=== PATIENT | female | born 1965 | race Caucasian/White ===

== ENCOUNTER 2017-09-13 14:08 | Inpatient (IN) | payer BC, OTHER ==
[~2017-09-13] VITALS: Ht 157.5 cm; Wt 67.6 kg
[~2017-09-13 14:08] MED LIST: ALPR0.5T PO; CITA40TA22 PO; LEVO50TA PO
[2017-09-13] MEDS ORDERED: METO-304 PO (14:37)
[2017-09-13] MEDS ORDERED: VENL75TA4 PO (14:37)
[2017-09-13] MEDS ORDERED: NITROGLYCERIN 0.4 MG/TAB BOTTLE SL ONE ×2 (14:45→14:58)
[2017-09-13 14:59] LABS: BASOPHILS # (AUTO) 0.1 K/uL (0.0-8.0); BASOPHILS % (AUTO) 0.6 % (0.0-2.0); EOSINOPHILS # (AUTO) 0.1 K/uL (0.0-0.7); EOSINOPHILS % (AUTO) 0.9 % (0.0-7.0); HEMOGLOBIN 14.1 G/DL (12.0-16.0); LYMPHOCYTES # (AUTO) 2.2 K/UL (0.8-4.8); LYMPHOCYTES % (AUTO) 22.8 % (20.5-51.5); MEAN CORPUSCULAR HEMOGLOBIN 28.5 UUG (27.0-31.0); MEAN CORPUSCULAR HGB CONC 33 g/dL (32.0-37.0); MEAN CORPUSCULAR VOLUME 87.2 FL (81.0-99.0); MONOCYTES # (AUTO) 0.4 K/UL (0.1-1.30); MONOCYTES % (AUTO) 4.3 % (0.0-11.0); NEUTROPHILS # (AUTO) 7.1 K/UL (1.8-8.9); NEUTROPHILS % (AUTO) 71.4 % (38.5-71.5); PLATELET COUNT (AUTO) 408 K/UL (150-450); RED BLOOD CELL COUNT(AUTO) 4.93 MIL/UL (4.2-5.4); WHITE BLOOD COUNT (AUTO) 9.9 K/UL (4.0-11.2)
[2017-09-13] MEDS ORDERED: ACETAMINOPHEN ES 500 MG TABLET PO ONE (15:00)
[2017-09-13] MEDS ORDERED: ONDANSETRON ODT 4 MG TAB.RAPDIS SL ONE (15:00)
[2017-09-13 15:05] LABS: CREATININE 0.8 mg/dL (0.6-1.3); POTASSIUM 4.1 mmol/L (3.5-5.1)
[2017-09-13 15:11] LABS: BILIRUBIN,DIRECT 0.1 mg/dL (0.0-0.2); BILIRUBIN,TOTAL 0.4 mg/dL (0.2-1.0); TOTAL PROTEIN, SERUM 7.8 g/dL (6.4-8.2)
--- NOTE | 2017-09-13 15:11 | NUR ---
IV PLACED/EKG DONE/NTG SL X2 GIVEN/PT TO CT SCAN VIA GUERNEY/MONITOR SHOWED NSR/PO2=99%ON ROOM AIR./LABS DRAWN-SENT
[2017-09-13] MEDS ORDERED: ONDANSETRON ODT 4 MG TAB.RAPDIS ONE (15:14)
[2017-09-13] MEDS ORDERED: ACETAMINOPHEN ES 500 MG TABLET ONE (15:14)
--- NOTE | 2017-09-13 15:34 | NUR ---
PT RETIRNED FROM CT SCAN, CP=01/30,3RD NTG SL ADMINISTERED.
--- NOTE | 2017-09-13 15:42 | NUR ---
CP 01/30,BP 112/47, HR =84
[2017-09-13] MEDS ORDERED: MORPHINE SULFATE 2 MG/1 ML DISP.SYRIN IV ONE (15:45)
[2017-09-13] MEDS ORDERED: MORPHINE SULFATE 2 MG/1 ML DISP.SYRIN ONE (15:56)
[2017-09-13] MEDS ORDERED: ASPIRIN 325 MG TABLET PO ONE (16:00)
[2017-09-13] MEDS ORDERED: ASPIRIN 81 MG TAB.CHEW PO SCH (17:00)
--- NOTE | 2017-09-13 17:10 | NUR ---
SBAR REPORT TO MARY JANE SANCHEZ -2ND FLOOR, PT TORM 207 VIA BRYNN, AND MONITOR. ADMIT ORDER WRITTEN, BELONGINGS LIST DONE.
[2017-09-13] MEDS ORDERED: ASPIRIN 81 MG TAB.CHEW ONE (17:21)
[2017-09-13 17:37] VITALS: BP 142/66
--- NOTE | 2017-09-13 17:45 | NUR ---
52 YEAR OLD FEMALE ADMITTED TO ROOM 207 FOR CHEST PAIN.PT ISAXOX4.ORIENT THE PT TO ROOM AND SURROUNDINGS.MD CALLED FOE ADMISSION ORDERS.
[2017-09-13] MEDS ORDERED: MORPHINE SULFATE 2 MG/1 ML DISP.SYRIN IV PRN (18:15)
[2017-09-13] MEDS ORDERED: ZOLPIDEM 5 MG TABLET PO PRN (18:15)
[2017-09-13] MEDS ORDERED: Z GUARD REMEDY PASTE 57 GM TUBE TOP PRN (18:15)
[2017-09-13] MEDS: AMLODIPINE 2.5 MG TABLET PO SCH (18:37)
[2017-09-13 20:00] VITALS: BP 127/75
--- NOTE | 2017-09-13 20:00 | NUR ---
PATIENT WITH DAUGHTER IN THE ROOM. BP STABLE 127/75 NO CHEST PAIN. VERBALIZED BEING ANXIOUS TO HAVE ANOTHER CHEST PAIN EPISODE. REASSURED AND ADVISED TO REPORT ANY DISCOMFORTS.
[2017-09-13] MEDS ORDERED: ENOXAPARIN SODIUM 40 MG/0.4 ML DISP.SYRIN SQ SCH (21:00)
[2017-09-13] MEDS: ONDANSETRON 4 MG/2 ML VIAL IV PRN (21:00)
[2017-09-13] MEDS: ACETAMINOPHEN 325 MG TABLET PO PRN (21:12)
--- NOTE | 2017-09-13 21:48 | NUR ---
COMPLAINT OF NAUSEA GIVEN PRN ZOFRAN. OTHERWISE VITAL SIGNS ARE STABLE. SR ON TELE. CALL LIGHT WITHIN REACH.
[2017-09-14 00:19] VITALS: BP 138/74
[2017-09-14 04:00] VITALS: BP 135/85
[2017-09-14] MEDS: ACETAMINOPHEN 325 MG TABLET PO PRN (05:54)
--- NOTE | 2017-09-14 06:00 | NUR ---
SLEPT GOOD THEN WOKE UP WITH HEADACHE, GIVEN ANOTHER DOSE OF TYLENOL. NO CHEST PAIN. BP 135/85.
[2017-09-14 06:48] LABS: BASOPHILS % (AUTO) 0.6 % (0.0-2.0); EOSINOPHILS # (AUTO) 0.2 K/uL (0.0-0.7); EOSINOPHILS % (AUTO) 2.1 % (0.0-7.0); HEMOGLOBIN 13.2 G/DL (12.0-16.0); LYMPHOCYTES # (AUTO) 3.2 K/UL (0.8-4.8); LYMPHOCYTES % (AUTO) 44.7 % (20.5-51.5); MEAN CORPUSCULAR HEMOGLOBIN 28.9 UUG (27.0-31.0); MEAN CORPUSCULAR HGB CONC 33 g/dL (32.0-37.0); MEAN CORPUSCULAR VOLUME 87.4 FL (81.0-99.0); MONOCYTES # (AUTO) 0.4 K/UL (0.1-1.30); MONOCYTES % (AUTO) 5.8 % (0.0-11.0); NEUTROPHILS # (AUTO) 3.5 K/UL (1.8-8.9); NEUTROPHILS % (AUTO) 46.8 % (38.5-71.5); PLATELET COUNT (AUTO) 373 K/UL (150-450); RED BLOOD CELL COUNT(AUTO) 4.57 MIL/UL (4.2-5.4); WHITE BLOOD COUNT (AUTO) 7.3 K/UL (4.0-11.2)
[2017-09-14 07:17] LABS: THYROID STIMULATING HORMONE 2.257 mIU/mL (0.358-3.740)
--- NOTE | 2017-09-14 08:00 | NUR ---
Pt is in no acute distress. Discussed plan of care with pt re: notifying nursing of any c/o CP, fall precaution due to b/p meds being given and it's side effects, and pain management. Pt agreeable with plan of care. Tele SNR no ectopy per potline monitor. Call light is within reach.
[2017-09-14] MEDS: AMLODIPINE 2.5 MG TABLET PO SCH (08:28)
[2017-09-14] MEDS: ONDANSETRON 4 MG/2 ML VIAL IV PRN (08:36)
[2017-09-14] MEDS ORDERED: METOPROLOL SUCCINATE XL 50 MG TAB.SR.24H PO SCH (09:00)
[2017-09-14] MEDS ORDERED: INFLUENZA VACCINE 2017-2018 0.5 ML DISP.SYRIN IM ONE (09:00)
[2017-09-14] MEDS ORDERED: VENLAFAXINE 75 MG TABLET PO SCH (09:00)
[2017-09-14 09:28] LABS: BILIRUBIN,TOTAL 0.3 mg/dL (0.2-1.0); CREATININE 1.1 mg/dL (0.6-1.3); PHOSPHOROUS 3.5 mg/dL (2.5-4.9); POTASSIUM 3.8 mmol/L (3.5-5.1); TOTAL PROTEIN, SERUM 7.2 g/dL (6.4-8.2)
[2017-09-14 11:46] VITALS: BP 128/86
[2017-09-14] MEDS ORDERED: AMLO10TA4 PO (12:05)
[2017-09-14] MEDS ORDERED: METO-304 PO (12:06)
[2017-09-14] MEDS ORDERED: VENL75TA4 PO (12:06)
[2017-09-14 15:45] VITALS: BP 129/66
--- NOTE | 2017-09-14 17:00 | NUR ---
Plan of care effective. Pt denies any c/o pain, no fall noted, denies any c/o pain. Call light is within reach.
--- NOTE | 2017-09-14 17:20 | NUR ---
Discharged pt home cleared by shredded filler cigar maker machine and hospitalist. Prescription given to patient. Discharge instructions given to pt - verbalized understanding. Instructed to take ASA 81mg EC po per Dr chacon recommendation on his notes. Pt verbalized understanding. Pt took his flu vaccine earlier without any reactions. IV d/c. Pharmacist educated pt on medications.
== END 2017-09-14 17:20 | disposition home or self-care (01) | DRG 199 ==
LOC: ER 14:11 → TELE 16:51
PROVIDERS: ADMIT Nurse Practitioner Acute Care; ATTEND Nurse Practitioner Acute Care
DX: I16.0 Hypertensive urgency (principal); T44.7X6A Underdosing of beta-adrenoreceptor antagonists, initial encounter; Z91.138 Patient's unintentional underdosing of medication regimen for other reason; M94.0 Chondrocostal junction syndrome [Tietze]; K25.9 Gastric ulcer, unspecified as acute or chronic, without hemorrhage or perforation; F41.9 Anxiety disorder, unspecified; Y92.009 Unspecified place in unspecified non-institutional (private) residence as the place of occurrence of the external cause; Z87.42 Personal history of other diseases of the female genital tract; J45.909 Unspecified asthma, uncomplicated; Z87.11 Personal history of peptic ulcer disease; Z79.899 Other long term (current) drug therapy
CPT/HCPCS: 36415; 70030-TC; 70450; 71010; 83690; 83735; 84100; 84443; 84703; 85025; 85730; 90686; 93005; 93307; A4663; J1650; J2270; J2405; Q0162

== ENCOUNTER 2018-03-20 22:44 | Inpatient (IN) | payer OTHER ==
[~2018-03-20] VITALS: Ht 154.9 cm; Wt 69.9 kg
[~2018-03-20 22:44] MED LIST changes: -ALPR0.5T PO; +AMLO10TA4 PO; -CITA40TA22 PO; -LEVO50TA PO; +METO-357 PO; +VENL75TA4 PO
[2018-03-21] MEDS ORDERED: LEVO50TA8 PO (00:18)
[2018-03-21] MEDS ORDERED: HYDR25TA4 PO (00:18)
[2018-03-21 00:43] LABS: BASOPHILS % (AUTO) 0.6 % (0.0-2.0); EOSINOPHILS # (AUTO) 0.2 K/uL (0.0-0.7); EOSINOPHILS % (AUTO) 2.9 % (0.0-7.0); HEMOGLOBIN 12.9 g/dL (10.9-14.3); LYMPHOCYTES % (AUTO) 38.2 % (20.5-51.5); MEAN CORPUSCULAR HEMOGLOBIN 29.3 uug (24.7-32.8); MEAN CORPUSCULAR HGB CONC 34 g/dL (32.3-35.6); MEAN CORPUSCULAR VOLUME 86.1 fL (75.5-95.3); MONOCYTES # (AUTO) 0.6 K/uL (2.0-10.0); MONOCYTES % (AUTO) 7.2 % (0.0-11.0); NEUTROPHILS % (AUTO) 51.1 % (38.5-71.5); PLATELET COUNT (AUTO) 408 K/uL (179-408); RED BLOOD CELL COUNT(AUTO) 4.41 MIL/uL (3.63-4.92); WHITE BLOOD COUNT (AUTO) 7.9 K/uL (3.8-11.8)
[2018-03-21 00:59] LABS: CREATININE 0.8 mg/dL (0.6-1.3); POTASSIUM 3.7 mmol/L (3.5-5.1)
[2018-03-21] MEDS ORDERED: ASPIRIN 81 MG TAB.CHEW PO ONE (02:15)
[2018-03-21] MEDS ORDERED: ASPIRIN 81 MG TAB.CHEW ONE (02:18)
[2018-03-21 03:40] VITALS: BP 161/96
[2018-03-21 04:00] VITALS: BP 143/82
[2018-03-21] MEDS ORDERED: ONDANSETRON 4 MG/2 ML VIAL IV PRN (04:30)
[2018-03-21] MEDS ORDERED: NITROGLYCERIN OINT 1 GM PACKET TP PRN ×2 (04:30→08:48)
[2018-03-21] MEDS ORDERED: NORMAL SALINE FLUSH 10 ML DISP.SYRIN IV PRN (04:30)
[2018-03-21] MEDS ORDERED: ACETAMINOPHEN 325 MG TABLET PO PRN (04:30)
[2018-03-21] MEDS ORDERED: ZOLPIDEM 5 MG TABLET PO PRN (04:30)
[2018-03-21] MEDS ORDERED: ONDANSETRON INJ 8 MG in IV NORMAL SALINE 50 ML IV PRN (04:30)
[2018-03-21] MEDS: NORMAL SALINE FLUSH 10 ML DISP.SYRIN IV SCH ×2 (06:03→14:00)
[2018-03-21 06:36] LABS: BASOPHILS # (AUTO) 0.1 K/uL (0.0-8.0); BASOPHILS % (AUTO) 0.8 % (0.0-2.0); EOSINOPHILS # (AUTO) 0.2 K/uL (0.0-0.7); EOSINOPHILS % (AUTO) 3.5 % (0.0-7.0); HEMATOCRIT 38.7 % (31.2-41.9); HEMOGLOBIN 13.1 g/dL (10.9-14.3); LYMPHOCYTES # (AUTO) 2.8 K/uL (20.0-40.0); LYMPHOCYTES % (AUTO) 39.6 % (20.5-51.5); MEAN CORPUSCULAR HEMOGLOBIN 29.5 uug (24.7-32.8); MEAN CORPUSCULAR HGB CONC 34 g/dL (32.3-35.6); MEAN CORPUSCULAR VOLUME 87.1 fL (75.5-95.3); MONOCYTES # (AUTO) 0.4 K/uL (2.0-10.0); MONOCYTES % (AUTO) 5.4 % (0.0-11.0); NEUTROPHILS # (AUTO) 3.6 K/uL (1.8-8.9); NEUTROPHILS % (AUTO) 50.7 % (38.5-71.5); PLATELET COUNT (AUTO) 396 K/uL (179-408); RED BLOOD CELL COUNT(AUTO) 4.45 MIL/uL (3.63-4.92)
[2018-03-21] MEDS ORDERED: LEVOTHYROXINE SODIUM 50 MCG TABLET PO SCH (07:00)
[2018-03-21 07:05] LABS: BILIRUBIN,TOTAL 0.1 mg/dL (0.2-1.0); CREATININE 0.8 mg/dL (0.6-1.3); POTASSIUM 4.5 mmol/L (3.5-5.1); TOTAL PROTEIN, SERUM 7.2 g/dL (6.4-8.2)
[2018-03-21] MEDS ORDERED: AMLODIPINE 5 MG TABLET PO SCH (09:00)
[2018-03-21] MEDS ORDERED: HYDROCHLOROTHIAZIDE 25 MG TABLET PO SCH (09:00)
[2018-03-21] MEDS ORDERED: METO-358 PO (09:04)
[2018-03-21] MEDS ORDERED: VENL75TA4 PO (09:05)
[2018-03-21] MEDS ORDERED: METOPROLOL SUCCINATE XL 100 MG TAB.SR.24H PO SCH (09:15)
[2018-03-21] MEDS ORDERED: VENLAFAXINE 75 MG TABLET PO SCH (09:15)
[2018-03-21 11:19] LABS: THYROID STIMULATING HORMONE 4.455 mIU/mL (0.358-3.740)
[2018-03-21 11:52] VITALS: BP 150/79
[2018-03-21] MEDS ORDERED: AMLO10TA2 PO (13:09)
== END 2018-03-21 14:32 | disposition home or self-care (01) | DRG 198 ==
LOC: ER 22:45 → TELE 03-21 03:01
PROVIDERS: ADMIT Internal Medicine; ATTEND Internal Medicine
DX: I25.119 Atherosclerotic heart disease of native coronary artery with unspecified angina pectoris (principal); I10 Essential (primary) hypertension; E04.9 Nontoxic goiter, unspecified; E03.9 Hypothyroidism, unspecified; J45.909 Unspecified asthma, uncomplicated; Z87.442 Personal history of urinary calculi; Z87.11 Personal history of peptic ulcer disease
CPT/HCPCS: 36415; 70030-TC; 70450; 71045; 84443; 85025; 85730; 93005; A4663; J2405; J3490

== ENCOUNTER 2018-11-17 21:51 | Emergency (ER) | payer OTHER ==
[~2018-11-17] VITALS: Ht 157.5 cm; Wt 70.8 kg
[~2018-11-17 21:51] MED LIST changes: -AMLO10TA4 PO; +AMLO10TA7 PO; +HYDR25TA4 PO; +LEVO50TA8 PO; -METO-357 PO; +METO-358 PO
--- NOTE | 2018-11-17 22:10 | NUR ---
PT A/OX4, ABLE TO FOLLOW COMMANDS. PT C/O EPIGASTRIC PAIN THAT STARTED YESTERDAY AROUND 1600, NO PROVOKING FACTOR, SHARP IN QUALITY, RADIATES TOWARDS THE BACK, 08/02, CONSTANT. PT STATES SHE'S HAD NORMAL BM SINCE. SECONDARY COMPLAINT: NAUSEA DENIES VOMITING, DIARRHEA, C/P, SOB, DIZZINESS, HEADACHE.
--- NOTE | 2018-11-17 22:35 | NUR ---
BARBARA PAVON AT BEDSIDE FOR MSE.
[2018-11-17] MEDS ORDERED: LIDOCAINE VISCUS 2% 15 ML UDC ONE (22:42)
[2018-11-17] MEDS ORDERED: ONDANSETRON ODT 4 MG TAB.RAPDIS ONE (22:42)
[2018-11-17] MEDS ORDERED: MAG HYDROX/AL HYDROX/SIMETH 30 ML LIQUID UDC ONE (22:42)
[2018-11-17] MEDS ORDERED: PANTOPRAZOLE SODIUM 40 MG TABLET.DR PO ONE ×2 (22:42→22:45)
[2018-11-17] MEDS ORDERED: ONDANSETRON ODT 4 MG TAB.RAPDIS SL ONE (22:45)
[2018-11-17] MEDS ORDERED: LIDOCAINE VISCUS 2% 15 ML UDC MM ONE (22:45)
[2018-11-17] MEDS ORDERED: MAG HYDROX/AL HYDROX/SIMETH 30 ML LIQUID UDC PO ONE (22:45)
--- NOTE | 2018-11-17 23:11 | NUR ---
Patient discharged to home in stable conditon. Written and verbal after care instructions given. Patient verbalizes understanding of instructions. PT D/C W/ PRESCRIPTIONS. ALL BELONGINGS W/ PT. PT SELF-AMBULATED W/O DIFFICULTY.
[2018-11-17 23:12] VITALS: BP 150/88
== END 2018-11-17 23:13 | disposition home or self-care (01) ==
LOC: ER 21:53
DX: K29.70 Gastritis, unspecified, without bleeding (principal); Z79.899 Other long term (current) drug therapy
CPT/HCPCS: 93005; A4663; Q0162

== ENCOUNTER 2019-07-05 17:07 | Emergency (ER) | payer OTHER ==
[~2019-07-05] VITALS: Ht 157.5 cm; Wt 69.9 kg
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
[2019-07-05] MEDS ORDERED: ACETAMINOPHEN ES 500 MG TABLET PO ONE (17:30)
[2019-07-05] MEDS ORDERED: IBUPROFEN 600 MG TABLET PO ONE (17:30)
[2019-07-05] MEDS ORDERED: IBUPROFEN 600 MG TABLET ONE (17:32)
[2019-07-05] MEDS ORDERED: ACETAMINOPHEN ES 500 MG TABLET ONE (17:32)
--- NOTE | 2019-07-05 18:26 | NUR ---
Patient discharged to home in stable conditon. Written and verbal after care instructions given. Patient verbalizes understanding of instructions. ALL BELONGINGS W/ PT. PT SELF-AMBULATED W/O DIFFICULTY.
[2019-07-05 18:27] VITALS: BP 131/70
== END 2019-07-05 18:27 | disposition home or self-care (01) ==
LOC: ER 17:12
DX: S60.052A Contusion of left little finger without damage to nail, initial encounter (principal); S20.312A Abrasion of left front wall of thorax, initial encounter; Z79.899 Other long term (current) drug therapy; V49.9XXA Car occupant (driver) (passenger) injured in unspecified traffic accident, initial encounter; Y93.89 Activity, other specified; Y92.89 Other specified places as the place of occurrence of the external cause; Y99.8 Other external cause status
CPT/HCPCS: 71045; 73130; A4663; A9150

== ENCOUNTER 2019-10-08 08:05 | Emergency (ER) | payer OTHER ==
[~2019-10-08] VITALS: Ht 157.5 cm; Wt 69.4 kg
--- NOTE | 2019-10-08 08:19 | NUR ---
Dr Alicea is at bedside doing the MSE.
[2019-10-08] MEDS ORDERED: IV NORMAL SALINE 1000 ML BAG IV ONE (08:30)
[2019-10-08 08:35] LABS: BASOPHILS % (AUTO) 0.6 % (0.0-2.0); EOSINOPHILS # (AUTO) 0.1 K/uL (0.0-0.7); EOSINOPHILS % (AUTO) 2.2 % (0.0-7.0); HEMATOCRIT 39.5 % (31.2-41.9); HEMOGLOBIN 12.9 g/dL (10.9-14.3); LYMPHOCYTES # (AUTO) 1.8 K/uL (20.0-40.0); LYMPHOCYTES % (AUTO) 28.2 % (20.5-51.5); MEAN CORPUSCULAR HEMOGLOBIN 28.2 uug (24.7-32.8); MEAN CORPUSCULAR HGB CONC 33 g/dL (32.3-35.6); MEAN CORPUSCULAR VOLUME 86.5 fL (75.5-95.3); MONOCYTES # (AUTO) 0.4 K/uL (2.0-10.0); MONOCYTES % (AUTO) 5.7 % (0.0-11.0); NEUTROPHILS # (AUTO) 3.9 K/uL (1.8-8.9); NEUTROPHILS % (AUTO) 63.3 % (38.5-71.5); PLATELET COUNT (AUTO) 379 K/uL (179-408); RED BLOOD CELL COUNT(AUTO) 4.57 MIL/uL (3.63-4.92); WHITE BLOOD COUNT (AUTO) 6.2 K/uL (3.8-11.8)
[2019-10-08 08:35] LABS: *BILIRUBIN,URIN NEGATIVE (NEGATIVE); *CLARITY,URINE CLEAR (CLEAR); *COLOR,URINE YELLOW (YELLOW); *KETONES,URINE NEGATIVE (NEGATIVE); *UROBILINOGEN,URINE 0.2 E.U./dl (NORMAL); LEUKOCYTE ESTERASE ,URINE NEGATIVE (NEGATIVE); NITRITE, URINE NEGATIVE (NEGATIVE); PH,URINE 6.5 (5.0-8.0); UGLUCOSE NEGATIVE (NEGATIVE)
[2019-10-08 08:40] LABS: *BLOOD, URINE NEGATIVE (NEGATIVE)
[2019-10-08 08:44] LABS: CREATININE 0.7 mg/dL (0.6-1.3); POTASSIUM 4.2 mmol/L (3.5-5.1)
[2019-10-08 08:50] LABS: BILIRUBIN,DIRECT 0.1 mg/dL (0.0-0.2); BILIRUBIN,TOTAL 0.3 mg/dL (0.2-1.0); TOTAL PROTEIN, SERUM 7.4 g/dL (6.4-8.2)
--- NOTE | 2019-10-08 09:31 | NUR ---
PATIENT IS PAIN FREE AT THIS TIME. IV removed. Catheter intact and site benign. Pressure and 4x4 gauze applied to site. No bleeding noted. Patient discharged to home in stable conditon with brisk steady gait . Written and verbal after care instructions given to patient. Patient verbalizes understanding & compliance of instructions.
[2019-10-08 09:32] VITALS: BP 126/80
== END 2019-10-08 09:32 | disposition home or self-care (01) ==
LOC: ER 08:05
DX: R10.32 Left lower quadrant pain (principal); Z79.899 Other long term (current) drug therapy
CPT/HCPCS: 36415; 83690; 85025; 85730; A4663; J7030

== ENCOUNTER 2020-01-05 18:55 | Emergency (ER) | payer OTHER ==
[~2020-01-05] VITALS: Ht 157.5 cm; Wt 71.7 kg
[2020-01-05] MEDS ORDERED: IV NORMAL SALINE 1000 ML BAG IV ONE (19:30)
[2020-01-05 20:00] LABS: BASOPHILS % (AUTO) 0.4 % (0.0-2.0); EOSINOPHILS # (AUTO) 0.1 K/uL (0.0-0.7); EOSINOPHILS % (AUTO) 1.6 % (0.0-7.0); HEMATOCRIT 37.1 % (31.2-41.9); HEMOGLOBIN 12.2 g/dL (10.9-14.3); LYMPHOCYTES # (AUTO) 1.4 K/uL (20.0-40.0); LYMPHOCYTES % (AUTO) 21.7 % (20.5-51.5); MEAN CORPUSCULAR HEMOGLOBIN 28.8 uug (24.7-32.8); MEAN CORPUSCULAR HGB CONC 33 g/dL (32.3-35.6); MEAN CORPUSCULAR VOLUME 87.3 fL (75.5-95.3); MONOCYTES # (AUTO) 0.5 K/uL (2.0-10.0); MONOCYTES % (AUTO) 8.1 % (0.0-11.0); NEUTROPHILS # (AUTO) 4.3 K/uL (1.8-8.9); NEUTROPHILS % (AUTO) 68.2 % (38.5-71.5); PLATELET COUNT (AUTO) 315 K/uL (179-408); RED BLOOD CELL COUNT(AUTO) 4.25 MIL/uL (3.63-4.92); WHITE BLOOD COUNT (AUTO) 6.3 K/uL (3.8-11.8)
[2020-01-05 20:08] LABS: CARBON DIOXIDE 26 mmol/L (21-32); CHLORIDE 101 mmol/L (98-107); CREATININE 0.7 mg/dL (0.6-1.3); GLUCOSE 110 mg/dL (74-106); POTASSIUM 3.4 mmol/L (3.5-5.1); UREA NITROGEN, BLOOD 10 mg/dL (7-18)
[2020-01-05 20:15] LABS: ALANINE AMINOTRANSFERASE 33 U/L (14-59); ALKALINE PHOSPHATASE 86 U/L (50-136); ASPARTATE AMINOTRANSFERASE 31 U/L (15-37); BILIRUBIN,DIRECT < 0.1 mg/dL (0.0-0.2); BILIRUBIN,TOTAL 0.8 mg/dL (0.2-1.0); TOTAL PROTEIN, SERUM 7.7 g/dL (6.4-8.2)
--- NOTE | 2020-01-05 21:25 | NUR ---
Patient discharged to home in stable conditon. Written and verbal after care instructions given. Patient verbalizes understanding of instructions. Walked out of ER with no distress noted.
[2020-01-05 21:26] VITALS: BP 148/88
== END 2020-01-05 21:26 | disposition home or self-care (01) ==
LOC: ER 18:55
DX: J18.8 Other pneumonia, unspecified organism (principal); J11.1 Influenza due to unidentified influenza virus with other respiratory manifestations; I10 Essential (primary) hypertension; E03.9 Hypothyroidism, unspecified; Z79.899 Other long term (current) drug therapy
CPT/HCPCS: 36415; 70030-TC; 71045; 83605; 85025; 87040; 87400; 93005; A4663; J7030

== ENCOUNTER 2020-12-25 20:39 | Emergency (ER) | payer OTHER ==
[~2020-12-25] VITALS: Ht 157.5 cm; Wt 72.6 kg
[~2020-12-25 20:39] MED LIST changes: +AMLO10TA59 PO; -AMLO10TA7 PO
[2020-12-25] MEDS ORDERED: IBUPROFEN 800 MG TABLET PO ONE (21:15)
--- NOTE | 2020-12-25 21:20 | NUR ---
Patient is resting in the bed, stating that her right arm is 8/10 pain. Waiting for Motrin that was given to take effect.
[2020-12-25] MEDS ORDERED: IBUPROFEN 800 MG TABLET ONE (21:24)
--- NOTE | 2020-12-25 21:55 | NUR ---
set up mold technician in room.
[2020-12-25 22:20] VITALS: BP 136/66
--- NOTE | 2020-12-25 22:20 | NUR ---
Patient discharged to home in stable condition. Written and verbal after care instructions given. Patient verbalizes understanding of instructions. Stressed follow up or return to ER for worsening s/s. Patient ambulates without issue, all belongings were taken by patient.
== END 2020-12-25 22:20 | disposition home or self-care (01) ==
LOC: ER 20:48
DX: M79.601 Pain in right arm (principal); R22.31 Localized swelling, mass and lump, right upper limb; Z85.850 Personal history of malignant neoplasm of thyroid; Z87.442 Personal history of urinary calculi; Z79.890 Hormone replacement therapy; Z79.899 Other long term (current) drug therapy
CPT/HCPCS: A4663

== ENCOUNTER 2021-05-18 23:31 | Emergency (ER) | payer OTHER ==
[~2021-05-18] VITALS: Ht 157.5 cm; Wt 72.6 kg
--- NOTE | 2021-05-18 23:39 | NUR ---
Patient presents to ER with c/o of hand cramps x 1 week with numbness and tingling. No acute distress. Dr. Alicea at bedside.
[2021-05-18] MEDS ORDERED: HYDROCODONE/APAP 10-325 MG TABLET PO ONE (23:45)
--- NOTE | 2021-05-18 23:51 | NUR ---
Per Dr. Alicea pt stable for discharge. DC instructions and prescriptions given and reviewed with patient. Verbalized understanding. Left ER in stable condition.
[2021-05-18] MEDS ORDERED: HYDROCODONE/APAP 10-325 MG TABLET ONE (23:53)
== END 2021-05-18 23:53 | disposition home or self-care (01) ==
LOC: ER 23:36
DX: G56.03 Carpal tunnel syndrome, bilateral upper limbs (principal)
CPT/HCPCS: A4663

== ENCOUNTER 2021-06-19 18:14 | Inpatient (IN) | payer OTHER ==
[~2021-06-19] VITALS: Ht 162.6 cm; Wt 77.1 kg
[2021-06-19] MEDS ORDERED: MORPHINE SULFATE 2 MG/1 ML DISP.SYRIN IV ONE (18:30)
[2021-06-19] MEDS ORDERED: IV NORMAL SALINE 500 ML BAG IV ONE (18:30)
[2021-06-19] MEDS ORDERED: ASPIRIN 81 MG TAB.CHEW PO ONE (18:30)
[2021-06-19 18:58] LABS: HEMATOCRIT 39.4 % (31.2-41.9); MEAN CORPUSCULAR HEMOGLOBIN 29.9 uug (24.7-32.8); MEAN CORPUSCULAR VOLUME 89.5 fL (75.5-95.3); PLATELET COUNT (AUTO) 349 K/uL (179-408)
[2021-06-19] MEDS ORDERED: MORPHINE SULFATE 4 MG/1 ML DISP.SYRIN ONE ×2 (18:59→23:35)
--- NOTE | 2021-06-19 18:59 | NUR ---
PT IS IN ROOM #2B. DR LORA EVALUATED THE PT.
[2021-06-19] MEDS ORDERED: ASPIRIN 81 MG TAB.CHEW ONE (19:00)
[2021-06-19 19:01] LABS: CREATININE 0.9 mg/dL (0.6-1.3); POTASSIUM 3.7 mmol/L (3.5-5.1)
[2021-06-19] MEDS ORDERED: IV NORMAL SALINE 250 ML IV ONE (19:23)
[2021-06-19] MEDS ORDERED: SWABABLE VALVE TRANSFER SET EA MC ONE (19:23)
[2021-06-19] MEDS ORDERED: IOHEXOL 350 100 ML INFUS..BTL ONE (19:23)
--- NOTE | 2021-06-19 19:25 | NUR ---
Report recieved from DANIEL Bailon. Pt. resting in bed. Vss. No signs of distress.
--- NOTE | 2021-06-19 19:34 | NUR ---
Pt. taken to CT
--- NOTE | 2021-06-19 20:10 | NUR ---
Pt returned from CT
--- NOTE | 2021-06-19 22:24 | NUR ---
pt to go to room 608 at [facility]. Ambulance to be determined
--- NOTE | 2021-06-19 22:37 | NUR ---
ave report to DANIEL Adame at [facility].
--- NOTE | 2021-06-19 22:37 | NUR ---
Charis geller in [facility] - 06/19/21 at 2242 by GUERLINE Gave report to DANIEL Elliott at [facility].
--- NOTE | 2021-06-19 22:54 | NUR ---
Pt. to stay and be admitted at [facility] per pts. insurance.
--- NOTE | 2021-06-19 23:02 | NUR ---
Gave report to DANIEL Kim. Pt to go to room 304.
--- NOTE | 2021-06-19 23:15 | NUR ---
Pt. reported chest pain returned, 7/10 non radiating. MD Bailon notified.
--- NOTE | 2021-06-19 23:27 | NUR ---
Called [facility], Mary Stahl will call back to speak w/ Dr. Bailon about pt.
[2021-06-19] MEDS ORDERED: MORPHINE SULFATE 4 MG/1 ML DISP.SYRIN IV ONE (23:30)
[2021-06-20] MEDS ORDERED: MAGNESIUM HYDROXIDE 30 ML LIQUID UDC PO PRN
[2021-06-20] MEDS ORDERED: NITROGLYCERIN 0.4 MG/TAB BOTTLE SL PRN
[2021-06-20] MEDS ORDERED: MORPHINE SULFATE 2 MG/1 ML DISP.SYRIN IV PRN
[2021-06-20] MEDS ORDERED: Z GUARD REMEDY PASTE 57 GM TUBE TOP PRN
[2021-06-20] MEDS ORDERED: ONDANSETRON 4 MG/2 ML VIAL IV PRN
[2021-06-20] MEDS ORDERED: ACETAMINOPHEN 325 MG TABLET PO PRN
[2021-06-20 00:30] VITALS: BP 117/68
[2021-06-20 04:10] VITALS: BP 134/67
--- NOTE | 2021-06-20 05:18 | NUR ---
Pt slept throughout the night. C/o mild chest pain, alleviated by morphine and oxygen. Pt BRP, able to make needs known. IV site intact. Safety and comfort provided. No other issues or concerns at this time, will endorse to day shift.
[2021-06-20] MEDS ORDERED: LEVOTHYROXINE SODIUM 50 MCG TABLET PO SCH (06:00)
[2021-06-20 06:36] LABS: HEMATOCRIT 39.4 % (31.2-41.9); MEAN CORPUSCULAR HEMOGLOBIN 29.9 uug (24.7-32.8); MEAN CORPUSCULAR VOLUME 89.6 fL (75.5-95.3); PLATELET COUNT (AUTO) 339 K/uL (179-408)
[2021-06-20 07:00] LABS: CREATININE 0.8 mg/dL (0.6-1.3); MAGNESIUM 2.2 mg/dL (1.8-2.4); PHOSPHOROUS 5.2 mg/dL (2.5-4.9)
[2021-06-20] MEDS ORDERED: VENLAFAXINE 25 MG TABLET PO SCH (09:00)
[2021-06-20] MEDS: ASPIRIN 81 MG TAB.CHEW PO SCH (09:03)
[2021-06-20] MEDS: AMLODIPINE 10 MG TABLET PO SCH (09:03)
[2021-06-20] MEDS: HYDROCHLOROTHIAZIDE 25 MG TABLET PO SCH (09:04)
[2021-06-20] MEDS: METOPROLOL SUCCINATE XL 50 MG TAB.SR.24H PO SCH (09:04)
[2021-06-20 11:52] VITALS: BP 148/70
--- NOTE | 2021-06-20 15:00 | NUR ---
Nursing- Denies any chest discomfort, in no signs of any distress, making her needs know to the staff
[2021-06-20 16:00] VITALS: BP 131/72
[2021-06-20] MEDS ORDERED: VENL37.591 PO (16:40)
[2021-06-20] MEDS ORDERED: VENL75CA62 PO (16:40)
[2021-06-20] MEDS ORDERED: LEVO75TA PO (16:40)
[2021-06-20] MEDS ORDERED: ATOR40TA PO (16:40)
[2021-06-20 20:32] VITALS: BP 134/76
[2021-06-20] MEDS ORDERED: ATORVASTATIN 40 MG TABLET PO SCH (21:00)
[2021-06-21 00:31] VITALS: BP 158/72
[2021-06-21 04:30] VITALS: BP 131/68
--- NOTE | 2021-06-21 05:20 | NUR ---
Pt slept throughout the night. Denies chest pain or SOB at this time. Pt is ambulatory and able to make needs known. Safety and comfort provided. No other issues or concerns at this time, will endorse to day shift.
[2021-06-21] MEDS ORDERED: LEVOTHYROXINE SODIUM 75 MCG TABLET PO SCH (07:00)
--- NOTE | 2021-06-21 07:30 | NUR ---
Awake, alert, oriented x 4. Weaned off O2, with O2 sat of 97. Dr. Titus followed up Cardiac CTA. CN and JASSON Melgar informed, arrangements done.
--- NOTE | 2021-06-21 09:30 | NUR ---
Transported to [facility] via ambulance for Cardiac CTA
--- NOTE | 2021-06-21 11:30 | NUR ---
Back from [facility], Cardiac CTA done. Vital signs taken and recorded. Placed back on Tele. Complained of headache, Tylenol po given. Not in distress.
[2021-06-21] MEDS: ASPIRIN 81 MG TAB.CHEW PO SCH (11:44)
[2021-06-21] MEDS: HYDROCHLOROTHIAZIDE 25 MG TABLET PO SCH (11:46)
[2021-06-21] MEDS: AMLODIPINE 10 MG TABLET PO SCH (11:47)
[2021-06-21] MEDS: METOPROLOL SUCCINATE XL 50 MG TAB.SR.24H PO SCH (11:47)
[2021-06-21 12:00] VITALS: BP 128/60
--- NOTE | 2021-06-21 14:00 | NUR ---
Resting comfortably, denies chest pain, not in distress
[2021-06-21 15:29] VITALS: BP 115/52
--- NOTE | 2021-06-21 18:54 | NUR ---
With discharge order to home. Saline lock and tele removed. DC instruction given to patient, verbalized understanding. Waiting for daughter to chart picker
--- NOTE | 2021-06-21 19:00 | NUR ---
Went home per ambulatory in fair condition, not in distress, afebrile
[2021-06-21] MEDS ORDERED: VENLAFAXINE XR 75 MG TAB.ER.24H PO SCH (21:00)
[2021-06-21] MEDS ORDERED: VENLAFAXINE XR 37.5 MG CAP.SR.24H PO SCH (21:00)
== END 2021-06-21 19:15 | disposition home or self-care (01) | DRG 203 ==
LOC: ER 18:15 → TELE3 23:40
PROVIDERS: ADMIT Internal Medicine; ATTEND Internal Medicine
DX: R07.89 Other chest pain (principal); E83.51 Hypocalcemia; E78.5 Hyperlipidemia, unspecified; E89.0 Postprocedural hypothyroidism; Z87.442 Personal history of urinary calculi; I10 Essential (primary) hypertension; Z20.822 Contact with and (suspected) exposure to COVID-19; Z85.850 Personal history of malignant neoplasm of thyroid
CPT/HCPCS: 36415; 70030-TC; 71045; 83735; 84100; 85025; 93005; A4663; G0378; J2270; J7050; Q9967

== ENCOUNTER 2022-10-10 18:18 | Emergency (ER) | payer OTHER ==
[~2022-10-10] VITALS: Ht 162.6 cm; Wt 77.1 kg
[~2022-10-10 18:18] MED LIST changes: +ATOR40TA PO; -LEVO50TA8 PO; +LEVO75TA PO; +VENL37.591 PO; +VENL75CA62 PO; -VENL75TA4 PO
[2022-10-10 19:00] LABS: *BILIRUBIN,URIN NEGATIVE (NEGATIVE); *CLARITY,URINE CLEAR (CLEAR); *COLOR,URINE YELLOW (YELLOW); *KETONES,URINE NEGATIVE (NEGATIVE); *UROBILINOGEN,URINE 0.2 E.U./dl (NORMAL); LEUKOCYTE ESTERASE ,URINE NEGATIVE (NEGATIVE); NITRITE, URINE NEGATIVE (NEGATIVE); PH,URINE 5.5 (5.0-8.0); UGLUCOSE NEGATIVE (NEGATIVE)
[2022-10-10] MEDS ORDERED: ONDANSETRON 4 MG/2 ML VIAL IV ONE (19:00)
[2022-10-10] MEDS ORDERED: HYDROMORPHONE 1 MG/1 ML DISP.SYRIN IV ONE (19:00)
[2022-10-10 19:08] LABS: *BLOOD, URINE TRACE (NEGATIVE)
[2022-10-10 19:18] LABS: HEMATOCRIT 38.4 % (31.2-41.9); MEAN CORPUSCULAR HEMOGLOBIN 28.9 uug (24.7-32.8); MEAN CORPUSCULAR VOLUME 88.8 fL (75.5-95.3); PLATELET COUNT (AUTO) 345 K/uL (179-408)
[2022-10-10] MEDS ORDERED: IV NORMAL SALINE 250 ML IV ONE (19:28)
[2022-10-10] MEDS ORDERED: IOHEXOL 300MG/ML 100 ML INFUS..BTL ONE (19:28)
[2022-10-10] MEDS ORDERED: SWABABLE VALVE TRANSFER SET EA MC ONE (19:28)
[2022-10-10 19:37] LABS: ALANINE AMINOTRANSFERASE 31 U/L (14-59); ALKALINE PHOSPHATASE 102 U/L (50-136); ASPARTATE AMINOTRANSFERASE 13 U/L (15-37); BILIRUBIN,TOTAL 0.2 mg/dL (0.2-1.0); CARBON DIOXIDE 28 mmol/L (21-32); CHLORIDE 102 mmol/L (98-107); CREATININE 0.7 mg/dL (0.6-1.3); GLUCOSE 112 mg/dL (74-106); LIPASE 242 U/L (73-393); POTASSIUM 3.8 mmol/L (3.5-5.1); TOTAL PROTEIN, SERUM 7.2 g/dL (6.4-8.2); UREA NITROGEN, BLOOD 16 mg/dL (7-18)
[2022-10-10] MEDS ORDERED: ONDANSETRON 4 MG/2 ML VIAL ONE (19:39)
[2022-10-10] MEDS ORDERED: HYDROMORPHONE 1 MG/1 ML DISP.SYRIN ONE (19:39)
[2022-10-10 19:41] LABS: BILIRUBIN,DIRECT < 0.1 mg/dL (0.0-0.2)
--- NOTE | 2022-10-10 19:50 | NUR ---
Pt out of ER for CT.
--- NOTE | 2022-10-10 22:36 | NUR ---
Called [facility] for BLS transfer eta 60-90 min.
[2022-10-10 23:49] LABS: RBC,URINE 0-3 /HPF (0-3)
[2022-10-10 23:50] LABS: BACTERIA,URINE MODERATE /HPF (NONE SEEN); SQUAMOUS EPITHELIAL CELL,UR MODERATE /HPF (NONE SEEN)
[2022-10-11 00:10] LABS: WBC,URINE 0-3 /HPF (0-3)
--- NOTE | 2022-10-11 00:15 | NUR ---
[facility] arrived to ER to transport patient to [facility] [place]. Report and documentation given to EMT.
== END 2022-10-11 00:44 | disposition short-term general hospital (02) ==
LOC: ER 18:22
DX: R10.31 Right lower quadrant pain (principal); Z20.822 Contact with and (suspected) exposure to COVID-19; K76.0 Fatty (change of) liver, not elsewhere classified; Z79.899 Other long term (current) drug therapy
CPT/HCPCS: 99285; 74177; 96374; 76705; 96375; 87426; 80076; 80048; 81001; 83690; 85025; 87086; 36415; J2405; Q9967; J1170; A4663

== ENCOUNTER 2023-02-24 21:56 | Emergency (ER) | payer OTHER ==
[~2023-02-24] VITALS: Ht 157.5 cm; Wt 71.7 kg
--- NOTE | 2023-02-24 22:27 | NUR ---
Patient to room #3, assisted into gown, informed of plan of care, placed on monitor awaiting MD exam. No s/s of any distress noted, bedside EKG done for MD review, #20g established in right ac, blood collected and sent to lab. No s/s of any distress noted.
[2023-02-24 22:45] LABS: HEMATOCRIT 37.7 % (31.2-41.9); MEAN CORPUSCULAR VOLUME 87.6 fL (75.5-95.3); PLATELET COUNT (AUTO) 406 K/uL (179-408)
[2023-02-24] MEDS ORDERED: MECLIZINE HCL 25 MG TABLET PO ONE (22:45)
[2023-02-24] MEDS ORDERED: ONDANSETRON ODT 4 MG TAB.RAPDIS SL ONE (22:45)
[2023-02-24] MEDS ORDERED: IBUPROFEN 800 MG TABLET PO ONE (22:45)
--- NOTE | 2023-02-24 22:47 | NUR ---
Patient off unit to CT via rney.
[2023-02-24] MEDS ORDERED: ONDANSETRON ODT 4 MG TAB.RAPDIS ONE (22:49)
[2023-02-24] MEDS ORDERED: IBUPROFEN 800 MG TABLET ONE (22:49)
[2023-02-24] MEDS ORDERED: MECLIZINE HCL 25 MG TABLET ONE (22:49)
[2023-02-24 22:52] LABS: CARBON DIOXIDE 27 mmol/L (21-32); CHLORIDE 103 mmol/L (98-107); CREATININE 0.7 mg/dL (0.6-1.3); GLUCOSE 120 mg/dL (74-106); UREA NITROGEN, BLOOD 24 mg/dL (7-18)
--- NOTE | 2023-02-24 22:54 | NUR ---
Patient has returned from CT, awaiting results. Medicated as per order, MD at bedside talking to patient.
[2023-02-24 23:01] LABS: ALANINE AMINOTRANSFERASE 27 U/L (14-59); ALKALINE PHOSPHATASE 111 U/L (50-136); ASPARTATE AMINOTRANSFERASE 14 U/L (15-37); BILIRUBIN,DIRECT < 0.1 mg/dL (0.0-0.2); BILIRUBIN,TOTAL 0.1 mg/dL (0.2-1.0); TOTAL PROTEIN, SERUM 7.3 g/dL (6.4-8.2)
[2023-02-24 23:07] LABS: THYROID STIMULATING HORMONE 4.665 mIU/mL (0.358-3.740)
--- NOTE | 2023-02-24 23:56 | NUR ---
Patient resting in bed, no voiced c/o pain or discomfort at this time. Informed of need and provided cup for urine collection.
[2023-02-25] MEDS ORDERED: IV NS 1000 ML 1,000 ML IV ONE (00:45)
--- NOTE | 2023-02-25 00:46 | NUR ---
MD AT BEDSIDE, IVF INFUSING PER ORDER.
--- NOTE | 2023-02-25 04:03 | NUR ---
patient continues to rest without c/o, road test was done by ER MD, patient aware awaiting send out lab results. No change noted to primary assessment.
--- NOTE | 2023-02-25 04:21 | NUR ---
MD at bedside talking with patient, remains stable for discharge home, awaiting [facility].
[2023-02-25] MEDS ORDERED: MECL-159 PO (04:35)
[2023-02-25] MEDS ORDERED: ONDA4TAB11 PO (04:35)
--- NOTE | 2023-02-25 04:42 | NUR ---
ACI GIVEN, STATES UNDERSTANDING, HL REMOVED.
[2023-02-25 04:43] VITALS: BP 153/68
== END 2023-02-25 04:44 | disposition home or self-care (01) ==
LOC: ER 21:56
DX: R42 Dizziness and giddiness (principal); R07.89 Other chest pain; Z79.899 Other long term (current) drug therapy
CPT/HCPCS: 80076; 80048; 82550; 84443; 85025; 85379; 84484; 36415 ×2; 93005; 71045; 70450; 99285; 80320; 84439; 96360; J7040; A4663; G0480; J8597; Q0162

== ENCOUNTER 2023-07-13 23:19 | Emergency (ER) | payer OTHER ==
[~2023-07-13] VITALS: Ht 157.5 cm; Wt 71.2 kg
[~2023-07-13 23:19] MED LIST changes: +MECL-159 PO; +ONDA4TAB11 PO
[2023-07-14 01:35] LABS: BASOPHILS % (AUTO) 0.5 % (0.0-2.0); EOSINOPHILS # (AUTO) 0.2 K/uL (0.0-0.7); EOSINOPHILS % (AUTO) 2.4 % (0.0-7.0); HEMATOCRIT 39.4 % (31.2-41.9); HEMOGLOBIN 12.9 g/dL (10.9-14.3); LYMPHOCYTES # (AUTO) 2.6 K/uL (0.8-4.8); LYMPHOCYTES % (AUTO) 33.9 % (20.5-51.5); MEAN CORPUSCULAR HEMOGLOBIN 29.1 uug (24.7-32.8); MEAN CORPUSCULAR HGB CONC 33 g/dL (32.3-35.6); MEAN CORPUSCULAR VOLUME 88.4 fL (75.5-95.3); MONOCYTES # (AUTO) 0.6 K/uL (0.1-1.30); MONOCYTES % (AUTO) 7.3 % (0.0-11.0); NEUTROPHILS # (AUTO) 4.2 K/uL (1.8-8.9); NEUTROPHILS % (AUTO) 55.9 % (38.5-71.5); PLATELET COUNT (AUTO) 406 K/uL (179-408); RED BLOOD CELL COUNT(AUTO) 4.45 MIL/uL (3.63-4.92); RED CELL DISTRIBUTION WIDTH 14.3 % (12.3-17.7); WHITE BLOOD COUNT (AUTO) 7.6 K/uL (3.8-11.8)
[2023-07-14 01:45] LABS: CALCIUM 8.1 mg/dL (8.5-10.1); CARBON DIOXIDE 30 mmol/L (21-32); CHLORIDE 104 mmol/L (98-107); CREATININE 0.8 mg/dL (0.6-1.3); GLUCOSE 119 mg/dL (74-106); POTASSIUM 3.9 mmol/L (3.5-5.1); SODIUM SERUM 142 mmol/L (136-145); UREA NITROGEN, BLOOD 14 mg/dL (7-18)
[2023-07-14 01:46] LABS: DIFFERENTIAL COMMENT 1
[2023-07-14 01:57] LABS: ALANINE AMINOTRANSFERASE 33 U/L (14-59); ALBUMIN 3.7 g/dL (3.4-5.0); ALKALINE PHOSPHATASE 110 U/L (50-136); ASPARTATE AMINOTRANSFERASE 21 U/L (15-37); BILIRUBIN,DIRECT 0.1 mg/dL (0.0-0.2); BILIRUBIN,TOTAL 0.2 mg/dL (0.2-1.0); NT-PRO BNP 14 pg/mL (0-125); TOTAL PROTEIN, SERUM 7.9 g/dL (6.4-8.2)
[2023-07-14] MEDS ORDERED: CLONIDINE HCL 0.1 MG TABLET ONE (02:24)
[2023-07-14] MEDS ORDERED: ACETAMINOPHEN 325 MG TABLET ONE (02:24)
[2023-07-14] MEDS ORDERED: ACETAMINOPHEN 325 MG TABLET PO ONE (02:30)
[2023-07-14] MEDS ORDERED: CLONIDINE HCL 0.1 MG TABLET PO ONE (02:30)
[2023-07-14 03:20] VITALS: BP 149/85; TEMP 98.6; O2SAT 100
== END 2023-07-14 03:15 | disposition home or self-care (01) ==
LOC: ER 23:19
DX: E11.65 Type 2 diabetes mellitus with hyperglycemia (principal); I16.0 Hypertensive urgency; R51.9 Headache, unspecified; R07.89 Other chest pain; R06.09 Other forms of dyspnea; Z79.899 Other long term (current) drug therapy
CPT/HCPCS: 36415; 71045; 84484; 85025; 85730; 93005; A4663

== ENCOUNTER 2023-10-17 23:48 | Emergency (ER) | payer OTHER ==
[~2023-10-17] VITALS: Ht 157.5 cm; Wt 71.7 kg
[2023-10-18] MEDS ORDERED: CEFTRIAXONE 1 G in IV DEXTROSE 5% 50 ML IV ONE ×2
[2023-10-18] MEDS ORDERED: CEFTRIAXONE /D5W 50ML IVPB **ER PYXIS IV ONE (00:19)
[2023-10-18 00:22] LABS: BASOPHILS # (AUTO) 0.1 K/UL (0.0-0.2); BASOPHILS % (AUTO) 1.2 % (0.0-2.0); EOSINOPHILS # (AUTO) 0.2 K/uL (0.0-0.7); HEMATOCRIT 39.6 % (31.2-41.9); HEMOGLOBIN 13.1 g/dL (10.9-14.3); LYMPHOCYTES # (AUTO) 1.9 K/uL (0.8-4.8); MEAN CORPUSCULAR HEMOGLOBIN 29.1 uug (24.7-32.8); MEAN CORPUSCULAR HGB CONC 33 g/dL (32.3-35.6); MEAN CORPUSCULAR VOLUME 87.6 fL (75.5-95.3); MONOCYTES # (AUTO) 0.4 K/uL (0.1-1.30); MONOCYTES % (AUTO) 6.8 % (0.0-11.0); NEUTROPHILS # (AUTO) 3.6 K/uL (1.8-8.9); PLATELET COUNT (AUTO) 378 K/uL (179-408); RED BLOOD CELL COUNT(AUTO) 4.51 MIL/uL (3.63-4.92); RED CELL DISTRIBUTION WIDTH 13.9 % (12.3-17.7); WHITE BLOOD COUNT (AUTO) 6.2 K/uL (3.8-11.8)
[2023-10-18 00:27] LABS: CREATININE 0.9 mg/dL (0.6-1.3); DIFFERENTIAL COMMENT 1; POTASSIUM 3.7 mmol/L (3.5-5.1)
[2023-10-18 00:29] LABS: ERYTHROCYTE SEDIMENTATION RATE 58 MM/HR (0-20)
[2023-10-18 00:35] LABS: ALBUMIN 3.4 g/dL (3.4-5.0); BILIRUBIN,TOTAL 0.2 mg/dL (0.2-1.0); TOTAL PROTEIN, SERUM 7.3 g/dL (6.4-8.2)
[2023-10-18] MEDS ORDERED: IOHEXOL 300MG/ML 100 ML INFUS..BTL ONE (00:53)
[2023-10-18] MEDS ORDERED: IV NORMAL SALINE 250 ML IV ONE (00:54)
[2023-10-18] MEDS ORDERED: SWABABLE VALVE TRANSFER SET EA MC ONE (00:54)
[2023-10-18] MEDS ORDERED: CLIN-118 PO (04:28)
[2023-10-18 04:46] VITALS: BP 155/95; O2SAT 100
== END 2023-10-18 04:46 | disposition home or self-care (01) ==
LOC: ER 23:50
DX: K11.20 Sialoadenitis, unspecified (principal); L03.211 Cellulitis of face; Z79.899 Other long term (current) drug therapy
CPT/HCPCS: 99285; 96365; 70487; 80053; 82150; 85025; 85651; 87040; 36415; 83605; J0696; Q9967; A4606; A4663

== ENCOUNTER 2024-06-27 22:22 | Emergency (ER) | payer OTHER ==
[~2024-06-27] VITALS: Ht 157.5 cm; Wt 70.8 kg
[~2024-06-27 22:22] MED LIST changes: +CLIN-118 PO
[2024-06-27 23:28] LABS: *BILIRUBIN,URIN NEGATIVE (NEGATIVE); *BLOOD, URINE NEGATIVE (NEGATIVE); *CLARITY,URINE CLEAR (CLEAR); *COLOR,URINE YELLOW (YELLOW); *KETONES,URINE NEGATIVE (NEGATIVE); *PROTEIN,URINE TRACE (NEGATIVE); *UROBILINOGEN,URINE 0.2 E.U./dl (NORMAL); LEUKOCYTE ESTERASE ,URINE NEGATIVE (NEGATIVE); NITRITE, URINE NEGATIVE (NEGATIVE); PH,URINE 5.5 (5.0-8.0); UGLUCOSE NEGATIVE (NEGATIVE)
[2024-06-27 23:39] LABS: BACTERIA,URINE MODERATE /HPF (NONE SEEN); RBC,URINE 0-3 /HPF (0-3); SQUAMOUS EPITHELIAL CELL,UR MODERATE /HPF (NONE SEEN); WBC,URINE 0-3 /HPF (0-3)
[2024-06-27] MEDS ORDERED: KETOROLAC TROMETHAMINE 30 MG INJ ONE (23:58)
[2024-06-28] MEDS: KETOROLAC TROMETHAMINE 30 MG INJ IM ONE
[2024-06-28] MEDS ORDERED: CEphaleXIN 500 MG CAPSULE ONE (00:14)
[2024-06-28] MEDS ORDERED: PHENAZOPYRIDINE HCL 100 MG TABLET ONE (00:14)
[2024-06-28] MEDS: CEphaleXIN 500 MG CAPSULE PO ONE (00:16)
[2024-06-28] MEDS: PHENAZOPYRIDINE HCL 100 MG TABLET PO ONE (00:16)
[2024-06-28] MEDS ORDERED: CEPH500C2 PO (00:33)
[2024-06-28] MEDS ORDERED: LEVO75TA7 PO (00:33)
[2024-06-28] MEDS ORDERED: NAPR-1009 PO (00:33)
[2024-06-28] MEDS ORDERED: PHEN-704 PO (00:33)
[2024-06-28] MEDS ORDERED: CYCL5TAB PO (00:33)
[2024-06-28 00:39] VITALS: BP 148/103; O2SAT 99
== END 2024-06-28 00:39 | disposition home or self-care (01) ==
LOC: ER 22:23
DX: N39.0 Urinary tract infection, site not specified (principal); M54.50 Low back pain, unspecified; R30.0 Dysuria; Z98.890 Other specified postprocedural states; Z79.891 Long term (current) use of opiate analgesic; Z79.899 Other long term (current) drug therapy
CPT/HCPCS: 99283; 81001; 96372; J1885; A4606; A4663